=== PATIENT | male | born 1990 | race Caucasian/White ===

== ENCOUNTER 2025-01-08 11:42 | Emergency (ER) | payer OTHER ==
[~2025-01-08] VITALS: Ht 175.2 cm; Wt 77.1 kg
[2025-01-08] MEDS ORDERED: IOHEXOL 300 MG/ML 100 ML VIAL IV ONE (12:20)
[2025-01-08] MEDS ORDERED: SODIUM CHLORIDE 0.9% 1,000 ML IV ONE (12:20)
[2025-01-08] MEDS ORDERED: Ondansetron Hydrochloride 4 MG/2 ML VIAL IV ONE (12:20)
[2025-01-08 12:27] LABS: BASO # 0.0 10*3/uL (0.0-0.1); BASO % 0.4 % (0.0-1.0); EOS # 0.1 10*3/uL (0.0-0.4); EOS % 0.8 % (1.0-4.0); MEAN CELL VOLUME 91.2 fl (80.0-94.0); MEAN CORPUSCULAR HGB 31.0 pg (27.0-31.0); MEAN PLATELET VOLUME 10.1 fl (9.6-12.3); MONO # 0.9 10*3/uL (0.1-1.0); MONO % 8.5 % (3.0-9.0); NEUT # 8.1 10*3/uL (2.3-7.9); NEUT % 78.7 % (47.0-73.0); NUCLEATED RED BLOOD CELL 0.0 % (0.0-0.0); NUCLEATED RED BLOOD CELL 0.0 10*3/uL (0.0-0.0); PLATELET COUNT AUTOMATED 206 10*3/uL (130-400); RED CELL DISTRI WIDTH 12.3 % (0-14.5)
[2025-01-08] MEDS ORDERED: IOHEXOL 300 MG/ML 100 ML VIAL ONE (12:47)
[2025-01-08 12:54] LABS: BUN 7 mg/dl (9-23); SGPT/ALT 34 U/L (5-49)
[2025-01-08 12:54] LABS: BILIRUBIN Negative (Negative); BLOOD Negative (Negative); CLARITY Cloudy (Clear); COLOR Orange (Yellow); KETONE 1+ (Negative); LEUKO ESTERASE Negative (Negative); NITRITE Negative (Negative); PH 5.5 (4.5-8.0); SPECIFIC GRAVITY 1.025 (1.001-1.030); UROBILINOGEN 1.0 E.U./dl (0.0-1.0)
[2025-01-08 13:06] LABS: EPITHELIAL CELLS 0-2; MUCOUS 3+
[2025-01-08 13:07] LABS: BACTERIA 1+; RBC 0-2 rbc/hpf (0-2); WBC 0-2 wbc/hpf (0-5)
[2025-01-08] MEDS ORDERED: HYDROmorphONE Hydrochloride 0.5 MG/0.5 ML SYRINGE IV ONE (13:10)
[2025-01-08] MEDS ORDERED: Ondansetron4 MG PO (14:11)
[2025-01-08] MEDS ORDERED: PERCOCET 5-3251 EACH PO (14:11)
== END 2025-01-08 14:36 | disposition home or self-care (01) ==
LOC: ED 11:42
PROVIDERS: Nurse Practitioner Family
DX: S32.029A Unspecified fracture of second lumbar vertebra, initial encounter for closed fracture (principal); R10.9 Unspecified abdominal pain; V47.5XXA Car driver injured in collision with fixed or stationary object in traffic accident, initial encounter; Y93.89 Activity, other specified; Y92.410 Unspecified street and highway as the place of occurrence of the external cause; Y99.8 Other external cause status